=== PATIENT | male | born 1950 | race Caucasian/White ===

== ENCOUNTER 2016-06-23 23:40 | Inpatient (IN) | payer OTHER ==
[~2016-06-23] VITALS: Ht 167.6 cm; Wt 103.0 kg
[2016-06-24] VITALS (7 sets, daily range): BP systolic 134–150; BP diastolic 59–89; Ht 167.6 cm; Wt 103.0 kg
[2016-06-24 01:11] LABS: BASOPHIL % 3.8 % (0-2); PLATELET COUNT 169 x10^3mcL (130-400); RED CELL DISTRIBUTION WIDTH 12.4 % (11.5-14.5)
[2016-06-24 01:13] LABS: CALCIUM 8.7 mg/dL (8.5-10.1); CARBON DIOXIDE 26.1 mmol/L (21-32); CHLORIDE SERUM 101 mmol/L (98-107); CREATININE SERUM 1.1 mg/dL (0.7-1.3); GFR1 > 60 mL/min; GLUCOSE SERUM 323 mg/dL (74-106); POTASSIUM SERUM 3.8 mmol/L (3.5-5.1); SODIUM SERUM 137 mmol/L (136-145)
[2016-06-24 01:18] LABS: ALBUMIN 3.4 g/dL (3.4-5.0); ALKALINE PHOSPHATASE 125 U/L (46-116); ALT/SGPT 40 U/L (16-63); AST/SGOT 30 U/L (15-37); BILIRUBIN TOTAL 0.5 mg/dL (0.20-1.00); TOTAL PROTEIN, SERUM 7.7 g/dL (6.4-8.2)
[2016-06-24] MEDS ORDERED: METFORMIN HCL850 MG PO (02:09)
[2016-06-24 03:11] LABS: CHOLESTEROL/HDL RATIO 3.5; MAGNESIUM 1.8 mg/dL (1.8-2.4); PHOSPHOROUS 3.2 mg/dL (2.5-4.9)
[2016-06-24 03:15] LABS: FREE T4 1.08 ng/dL (0.76-1.46); FREE THYROXINE INDEX 2.5 ug/dL (1.4-4.5); T4(THYROXINE) 8.1 ug/dL (4.7-13.3)
[2016-06-24 03:24] LABS: T3 TOTAL 1.36 ng/mL
[2016-06-24 07:07] LABS: microscopic required? NO
[2016-06-24 07:50] LABS: urine erythrocyte NEGATIVE (NEGATIVE)
[2016-06-24 08:00] LABS: AMPHETAMINE QUAL UR NONE DETECTED (NEG <=1000)
[2016-06-25 05:39] VITALS: BP 130/79
[2016-06-25 06:31] LABS: BASOPHIL % 0.6 % (0-2); PLATELET COUNT 170 x10^3mcL (130-400); RED CELL DISTRIBUTION WIDTH 13.1 % (11.5-14.5)
[2016-06-25 06:48] LABS: CALCIUM 8.1 mg/dL (8.5-10.1); CARBON DIOXIDE 26.2 mmol/L (21-32); CHLORIDE SERUM 105 mmol/L (98-107); GFR1 > 60 mL/min; GLUCOSE SERUM 149 mg/dL (74-106); MAGNESIUM 1.6 mg/dL (1.8-2.4); PHOSPHOROUS 3.2 mg/dL (2.5-4.9); POTASSIUM SERUM 4.1 mmol/L (3.5-5.1); SODIUM SERUM 139 mmol/L (136-145)
[2016-06-25 08:15] VITALS: BP 151/75
== END 2016-06-25 14:10 | disposition left against medical advice (07) | DRG 392 ==
LOC: ED 23:40 → DU 06-24 02:01
PROVIDERS: Emergency Medicine; ADMIT Family Medicine
DX: K21.9 Gastro-esophageal reflux disease without esophagitis (principal); J45.901 Unspecified asthma with (acute) exacerbation; I42.9 Cardiomyopathy, unspecified; E11.65 Type 2 diabetes mellitus with hyperglycemia; E11.51 Type 2 diabetes mellitus with diabetic peripheral angiopathy without gangrene; E05.90 Thyrotoxicosis, unspecified without thyrotoxic crisis or storm; E66.9 Obesity, unspecified; Z68.36 Body mass index [BMI] 36.0-36.9, adult; Z79.84 Long term (current) use of oral hypoglycemic drugs
CPT/HCPCS: 80307; 82962; 83880; 84439; 94150; G0480; J3475; J7030; Q0092